=== PATIENT | male | born 1995 | race African-American/Black ===

== ENCOUNTER 2025-09-17 11:00 | Emergency (ER) | payer MEDICAID ==
[~2025-09-17] VITALS: Ht 167.6 cm; Wt 60.0 kg
[2025-09-17 11:11] VITALS: TEMP 36.8; O2SAT 100
[2025-09-17 13:19] VITALS: BP 120/84; PULSE 102; RESP 14; O2SAT 96
[2025-09-17] MEDS ORDERED: SODIUM CHLORIDE 0.9% 500 ML IV ONE (19:15)
== END 2025-09-17 13:22 | disposition home or self-care (01) ==
LOC: ER 11:00
DX: S71.12 Laceration with foreign body of thigh (principal); Z98.890 Other specified postprocedural states; X58.XXXD Exposure to other specified factors, subsequent encounter
CPT/HCPCS: 99282; J7040; Z7610 ×2